=== PATIENT | female | born 1985 | race Caucasian/White ===

== ENCOUNTER 2017-10-12 11:52 | Emergency (ER) | payer SELFPAY ==
[2017-10-12 12:10] VITALS: BP 124/77
--- NOTE | 2017-10-12 13:04 | ER Document Report ---
HPI - HPI Patient complains to provider of: Left ear pain Onset: Other - 2 days ago Onset/Duration: Persistent Quality of pain: Achy Pain Level: 4 Context: Patient presents complaining of left ear pain that started 2 days ago. Patient states that she had increased ear pain and then had onset of left ear drainage with some blood in the drainage. Patient is concerned that her eardrum ruptured. Patient does complain of continued left ear pain and that her right ear is starting to become painful. Patient denies any fever at this time. Associated Symptoms: Earache. denies: Nonproductive cough, Productive cough, Fever Exacerbated by: Denies Relieved by: Denies Similar symptoms previously: No Recently seen / treated by doctor: No - ROS ROS below otherwise negative: Yes Systems Reviewed and Negative: Yes All other systems reviewed and negative - CONSTITUTIONAL Constitutional: DENIES: Fever - EENT EENT: REPORTS: Ear Pain - RESPIRATORY Respiratory: DENIES: Coughing - GASTROINTESTINAL Gastrointestinal: DENIES: Nausea, Patient vomiting - DERM Skin Color: Normal Skin Problems: None Past Medical History - General Information source: Patient - Social History Smoking Status: Current Every Day Smoker Smoking Education Provided: Yes Frequency of alcohol use: None Drug Abuse: None Occupation: None Lives with: Family Family History: Reviewed & Not Pertinent EENT Medical History: Reports: Other - Allergies Past Surgical History: Reports: Hx Adenoidectomy, Hx Nose Surgery, Hx Tonsillectomy Vertical Provider Document - CONSTITUTIONAL Agree With Documented VS: Yes Exam Limitations: No Limitations General Appearance: WD/WN, No Apparent Distress - INFECTION CONTROL TRAVEL OUTSIDE OF THE [place] IN LAST 30 DAYS: No - HEENT HEENT: Atraumatic, Normocephalic. negative: Pharyngeal Exudate, Pharyngeal Tenderness, Pharyngeal Erythema, Tympanic Membrane Bulging Notes: +drainage to left ear, TM unable to be visualized no mastoid tenderness/swelling - NECK Neck: Normal Inspection, Supple - RESPIRATORY Respiratory: Breath Sounds Normal, No Respiratory Distress O2 Sat by Pulse Oximetry: 95 - CARDIOVASCULAR Cardiovascular: Regular Rate, Regular Rhythm, No Murmur - BACK Back: Normal Inspection - MUSCULOSKELETAL/EXTREMETIES Musculoskeletal/Extremeties: JUNIOR TRIPP - NEURO Level of Consciousness: Awake, Alert, Appropriate Motor/Sensory: No Motor Deficit - DERM Integumentary: Warm, Dry, No Rash Course - Vital Signs Vital signs: Temp Pulse Resp BP Pulse Ox 98.1 F 87 16 124/77 95 10/12/17 12:08 10/12/17 12:08 10/12/17 12:08 10/12/17 12:08 10/12/17 12:08 Discharge - Discharge Clinical Impression: Otitis media Qualifiers: Otitis media type: unspecified Chronicity: acute Qualified Code(s): H66.90 - Otitis media, unspecified, unspecified ear Condition: Stable Disposition: HOME, SELF-CARE Instructions: Amoxicillin ([facility]), Otitis Media ([facility]) Additional Instructions: return as needed for any new or worsening symptoms follow up with an ENT for a recheck Prescriptions: Amoxicillin 500 mg PO TID #30 tablet Forms: Smoking Cessation Education Referrals: [facility] [Provider Group] - Follow up as needed
== END 2017-10-12 13:08 | disposition home or self-care (01) ==
LOC: ER 11:52
DX: H66.90 Otitis media, unspecified, unspecified ear (principal); H92.02 Otalgia, left ear; H92.12 Otorrhea, left ear; F17.200 Nicotine dependence, unspecified, uncomplicated
CPT/HCPCS: 99282